=== PATIENT | female | born 1965 | race African-American/Black ===

== ENCOUNTER 2019-11-28 17:54 | Emergency (ER) | payer MEDICAID, OTHER, SELFPAY ==
[~2019-11-28] VITALS: Ht 162.6 cm; Wt 85.0 kg
[2019-11-28 17:57] VITALS: BP 135/70
[2019-11-28] MEDS ORDERED: MORPHINE SULFATE 4 MG/ML, 1ML IVPush PRN (18:30)
[2019-11-28] MEDS ORDERED: ONDANSETRON 2MG/ML, 2ML IVPush ONE (18:30)
[2019-11-28] MEDS ORDERED: KETOROLAC 30 MG/1 ML IVPush ONE (18:30)
[2019-11-28] MEDS ORDERED: SODIUM CHLORIDE FLUSH 10ML SYR IVF ONE (18:30)
[2019-11-28] MEDS ORDERED: ONDANSETRON 2MG/ML, 2ML ONE (18:49)
[2019-11-28] MEDS ORDERED: MORPHINE SULFATE 4 MG/ML, 1ML ONE (18:49)
[2019-11-28] MEDS ORDERED: KETOROLAC 30 MG/1 ML ONE (18:49)
--- NOTE | 2019-11-28 19:18 | NUR ---
PT TO AND FROM IMAGING. LAB AT BEDSIDE. IV ATTEMPT UNSUCCESSFUL. ULTRASOUND IV REQUESTED. 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
[2019-11-28 19:21] LABS: BASOPHILS # (AUTO) 0.04 x10^3/uL (0-0.1); BASOPHILS % (AUTO) 1 % (0-1); EOSINOPHILS # (AUTO) 0.16 x10^3/uL (0-0.4); EOSINOPHILS % (AUTO) 3 % (1-7); LYMPHOCYTES # (AUTO) 2.44 x10^3/uL (1-3.4); LYMPHOCYTES % (AUTO) 40 % (22-44); MD NO; MEAN CORPUSCULAR HEMOGLOBIN 32.4 pg (27.0-34.8); MEAN CORPUSCULAR HGB CONC 33.6 g/dL (32.4-35.8); MEAN CORPUSCULAR VOLUME 96.4 fL (80-100); MONOCYTES # (AUTO) 0.36 x10^3/uL (0.2-0.8); MONOCYTES % (AUTO) 6 % (2-9); NEUTROPHILS # (AUTO) 3.06 x10^3/uL (1.8-6.8); NEUTROPHILS % (AUTO) 51 % (42-75); PLATELET COUNT 295 x10^3/uL (130-400); RED BLOOD COUNT 4.35 x10^6/uL (3.82-5.3); RED CELL DISTRIBUTION WIDTH 13.9 % (9.6-15.2)
[2019-11-28 19:30] LABS: ALBUMIN 3.9 g/dL (3.4-5.0); ANION GAP 8 mmol/L (5-15); CALCIUM 9.2 mg/dL (8.5-10.1); CHLORIDE 109 mmol/L (98-107); CREATININE 1.06 mg/dL (0.55-1.02)
--- NOTE | 2019-11-28 20:18 | NUR ---
PT UP TO RESTROOM TO PROVIDE URINE SAMPLE AT THIS TIME.
[2019-11-28 20:35] LABS: MICROSCOPIC NOT IND
== END 2019-11-28 21:06 | disposition home or self-care (01) ==
LOC: ED 19:47
DX: M54.5 Low back pain (principal); R10.9 Unspecified abdominal pain
CPT/HCPCS: 36415; 71045; 74176; 80048; 81003; 82040; 85025; 96374; 96375; 99285; J1885; J2270; J2405